=== PATIENT | female | born 1965 | race Caucasian/White ===

== ENCOUNTER 2019-10-23 14:10 | Emergency (ER) | payer OTHER ==
[~2019-10-23] VITALS: Ht 167.6 cm; Wt 63.5 kg
[~2019-10-23 14:10] MED LIST: ALPRAZOLAM PO; AMLODIPINE PO; BACTRIM DS TAB1 EACH PO; CEFTIN500 MG PO; CYMBALTA60 MG PO; FLAGYL500 MG PO; LISINOPRIL20 MG PO; LOPRESSOR 50 MG50 M1 PO; NORCO 5-325 TA1 EACH PO; PRINZIDE 20-121 EACH PO; REMERON30 MG PO; WELLBUTRIN SR150 MG PO; WELLBUTRIN XL150 M1 PO; XANAX 0.5 MG0.5 M1 PO
[2019-10-23 14:32] LABS: URINE BILIRUBIN NEGATIVE (Negative); URINE BLOOD 2+ (Negative); URINE CLARITY CLEAR; URINE COLOR YELLOW; URINE GLUCOSE-RANDOM* NEGATIVE (Negative); URINE KETONES NEGATIVE (Negative); URINE LEUKOCYTES-REFLEX NEGATIVE (Negative); URINE NITRITE-REFLEX NEGATIVE (Negative); URINE PROTEIN (DIPSTICK) NEGATIVE (Negative); URINE SPECIFIC GRAVITY >= 1.030 (1.005-1.035); URINE UROBILINOGEN 0.2 E.U./dl (0.2-1.0)
[2019-10-23 14:47] LABS: CASTS None Seen /LPF (None Seen); CRYSTALS None Seen /LPF (None Seen); SQUAMOUS 4-10 Moderate /LPF (0-3)
[2019-10-23 14:48] LABS: URINE RBC 0-2 Rare /HPF (0-2); URINE WBC-REFLEX None Seen /HPF (0-5)
[2019-10-23] MEDS ORDERED: LISINOPRIL2.5 MG PO (14:49)
[2019-10-23] MEDS ORDERED: ASA81BEC PO (14:50)
[2019-10-23 15:00] LABS: ABSOLUTE NEUTROPHILS 5.1 thou/uL (1.4-8.2); BASOPHILS 0.7 % (0.0-2.0); EOSINOPHILS 0.8 % (0.0-3.0); HEMATOCRIT 44.3 % (37.0-47.0); HEMOGLOBIN 15.5 gm/dL (12.0-15.0); LYMPHOCYTES 31.4 % (24.0-44.0); MCH 33.6 pg (26.0-34.0); MCV 96.2 fL (80.0-100.0); PLATELET COUNT 277 thou/uL (150-400); POLYS 62.1 % (36.0-66.0); RDW 14.2 % (10.5-14.5); WBC 8.2 thou/uL (4.0-11.0)
[2019-10-23 15:07] LABS: CALCIUM 8.1 mg/dL (8.5-10.1); CREATININE 0.8 mg/dL (0.6-1.0)
[2019-10-23 15:14] LABS: POTASSIUM 2.9 mmol/L (3.5-5.1)
[2019-10-23 15:45] LABS: ALBUMIN 4.1 g/dL (3.4-5.0); TOTAL BILIRUBIN 0.4 mg/dL (<0.1-1.0); TOTAL PROTEIN 7.5 g/dL (6.4-8.2)
[2019-10-23] MEDS ORDERED: ATIVAN0.5 M1 PO (16:16)
[2019-10-23 16:41] VITALS: BP 117/76
== END 2019-10-23 16:41 | disposition home or self-care (01) ==
LOC: ER 14:10
PROVIDERS: Nurse Practitioner Family
DX: F10.920 Alcohol use, unspecified with intoxication, uncomplicated (principal); E87.6 Hypokalemia; R25.1 Tremor, unspecified; R07.89 Other chest pain; I10 Essential (primary) hypertension; K21.9 Gastro-esophageal reflux disease without esophagitis; F41.9 Anxiety disorder, unspecified; F32.9 Major depressive disorder, single episode, unspecified; F17.210 Nicotine dependence, cigarettes, uncomplicated; Z90.711 Acquired absence of uterus with remaining cervical stump; Z90.89 Acquired absence of other organs; Z98.890 Other specified postprocedural states; Z79.899 Other long term (current) drug therapy; Z79.82 Long term (current) use of aspirin; Z88.0 Allergy status to penicillin; Z88.1 Allergy status to other antibiotic agents; Y90.7 Blood alcohol level of 200-239 mg/100 ml